=== PATIENT | male | born 1960 | race Two or more races ===

== ENCOUNTER 2019-08-29 18:54 | Emergency (ER) | payer OTHER ==
[~2019-08-29] VITALS: Ht 157.5 cm; Wt 81.8 kg
[2019-08-29] MEDS ORDERED: LIDOCAINE 1% 10 ML VIAL INJ ONE (22:00)
[2019-08-29] MEDS ORDERED: PERTUSS(ACELL),DIPH,TET VAC/PF 0.5 ML VIAL IM ONE (22:00)
[2019-08-29] MEDS ORDERED: BACITRACIN 0.9 GM PACKET OINTMENT TP ONE (22:31)
[2019-08-29 23:57] VITALS: BP 129/83
== END 2019-08-29 23:59 | disposition home or self-care (01) ==
LOC: EMS 18:56
DX: S61.012A Laceration without foreign body of left thumb without damage to nail, initial encounter (principal); R42 Dizziness and giddiness; E78.00 Pure hypercholesterolemia, unspecified; Z98.890 Other specified postprocedural states; W27.0XXA Contact with workbench tool, initial encounter; Y93.89 Activity, other specified; Y92.89 Other specified places as the place of occurrence of the external cause; Y99.8 Other external cause status
CPT/HCPCS: 12001; 90471; 90715; 99283; J3490